=== PATIENT | male | born 1980 | race Hispanic/Latino ===

== ENCOUNTER 2023-03-26 19:59 | Emergency (ER) | payer BC ==
[~2023-03-26] VITALS: Ht 170.2 cm; Wt 104.3 kg
[2023-03-26] MEDS ORDERED: CLIN-141 PO (21:23)
[2023-03-26 22:17] VITALS: BP 130/64; PULSE 72; RESP 16; O2SAT 100
== END 2023-03-26 22:12 | disposition home or self-care (01) ==
LOC: EDH 19:59
DX: L03.113 Cellulitis of right upper limb (principal)